=== PATIENT | male | born 1980 | race Two or more races ===

== ENCOUNTER 2022-01-29 09:55 | Outpatient (CLI) | payer OTHER | END 2022-01-29 23:59 | disposition home or self-care (01) | LOC: RAD 09:55 → EEVIPCON 11:00 → RAD 23:59 | PROVIDERS: ATTEND Family Medicine | DX: R94.01 Abnormal electroencephalogram [EEG] (principal); R56.1 Post traumatic seizures | CPT/HCPCS: 95812; 95813 ==